=== PATIENT | female | born 1990 | race Caucasian/White ===

== ENCOUNTER 2017-04-19 19:27 | Observation (INO) | payer OTHER ==
[~2017-04-19] VITALS: Ht 149.9 cm; Wt 106.6 kg
[~2017-04-19 19:27] MED LIST: ATIVAN0.5 MG PO; DEPLIN-ALGAL O1 EAC1 PO; LAMICTAL100 MG PO; LEXAPRO; NORCO 5-325 TA1 EACH PO; ONDANSETRON HCL4 M2 PO; PRILOSEC 10MG C10 MG PO; PRISTIQ50 M1 PO; WOMEN'S DAILY1 EAC2 PO
[2017-04-19 19:31] VITALS: BP 123/76
[2017-04-19 20:25] LABS: URINE BILIRUBIN NEGATIVE (Negative); URINE BLOOD 3+ (Negative); URINE COLOR YELLOW; URINE GLUCOSE-RANDOM* NEGATIVE (Negative); URINE KETONES TRACE (Negative); URINE NITRITE NEGATIVE (Negative); URINE PROTEIN (DIPSTICK) TRACE (Negative); URINE SPECIFIC GRAVITY >= 1.030 (1.003-1.035); URINE UROBILINOGEN 0.2 E.U./dl (0.2-1.0)
[2017-04-19 20:35] LABS: BACTERIA >30 Many /HPF (None Seen); CASTS None Seen /LPF (None Seen); CRYSTALS None Seen /LPF (None Seen); SQUAMOUS >10 Many /LPF (0-3); URINE WBC 6-15 Few /HPF (0-5)
[2017-04-19 20:38] LABS: ABSOLUTE NEUTROPHILS 10.4 thou/uL (1.4-8.2); BASOPHILS 0.4 % (0.0-2.0); EOSINOPHILS 0.1 % (0.0-3.0); HEMOGLOBIN 12.3 gm/dL (12.0-15.0); MCH 29.1 pg (26.0-34.0); MCHC 33.2 g/dL (28.0-37.0); MCV 87.9 fL (80.0-100.0); MONOCYTES 5.3 % (1.0-8.0); PLATELET COUNT 364 thou/uL (150-400); POLYS 81.2 % (36.0-66.0); RBC 4.21 mil/uL (4.20-5.00); WBC 12.8 thou/uL (4.0-11.0)
[2017-04-19 20:40] LABS: MANUAL DIFF NO
[2017-04-19 20:46] LABS: CALCIUM 8.8 mg/dL (8.5-10.1); CREATININE 1.2 mg/dL (0.6-1.0); POTASSIUM 3.9 mmol/L (3.5-5.1)
[2017-04-20 01:39] VITALS: BP 104/58
[2017-04-20 07:15] VITALS: BP 98/59
[2017-04-20 15:00] VITALS: BP 92/48
[2017-04-20 19:19] VITALS: BP 96/46
[2017-04-21 03:16] VITALS: BP 109/68
[2017-04-21 04:01] LABS: CALCIUM 8.4 mg/dL (8.5-10.1); CREATININE 0.8 mg/dL (0.6-1.0); MAGNESIUM 1.8 mg/dL (1.8-2.4); POTASSIUM 3.9 mmol/L (3.5-5.1)
[2017-04-21 04:17] LABS: ABSOLUTE NEUTROPHILS 3.5 thou/uL (1.4-8.2); BASOPHILS 0.8 % (0.0-2.0); EOSINOPHILS 1.4 % (0.0-3.0); HEMATOCRIT 32.4 % (37.0-47.0); HEMOGLOBIN 10.7 gm/dL (12.0-15.0); LYMPHOCYTES 43.3 % (24.0-44.0); MCH 29.2 pg (26.0-34.0); MCHC 33.1 g/dL (28.0-37.0); MCV 88.2 fL (80.0-100.0); MONOCYTES 7.9 % (1.0-8.0); PLATELET COUNT 308 thou/uL (150-400); POLYS 46.6 % (36.0-66.0); RBC 3.68 mil/uL (4.20-5.00); RDW 14.2 % (10.5-14.5); WBC 7.5 thou/uL (4.0-11.0)
[2017-04-21 04:18] LABS: MANUAL DIFF NO
[2017-04-21 07:52] VITALS: BP 114/70
[2017-04-21] MEDS ORDERED: LEVAQUIN 500 M500 M3 PO (12:03)
[2017-04-21] MEDS ORDERED: FLOMAX0.4 MG PO (12:04)
[2017-04-21] MEDS ORDERED: NORCO 5-325 TA1 EACH PO (12:05)
[2017-04-21 12:17] VITALS: BP 114/70
== END 2017-04-21 12:40 | disposition home or self-care (01) ==
LOC: ER 19:27 → 4N 04-20 00:33 → EROBS 04-20 00:33 → 4N 04-20 01:51
PROVIDERS: Nurse Practitioner
DX: N20.0 Calculus of kidney (principal); F41.9 Anxiety disorder, unspecified; F32.9 Major depressive disorder, single episode, unspecified; N39.0 Urinary tract infection, site not specified; R10.2 Pelvic and perineal pain; R10.9 Unspecified abdominal pain; K76.0 Fatty (change of) liver, not elsewhere classified; Z72.89 Other problems related to lifestyle; Z87.891 Personal history of nicotine dependence